=== PATIENT | male | born 1975 | race Caucasian/White ===

== ENCOUNTER 2017-08-25 20:05 | Observation (INO) | payer OTHER, SELFPAY ==
[2017-08-25 20:07] VITALS: BMI 42.3
--- NOTE | 2017-08-25 20:09 | XR_ITS ---
XR chest 2V HISTORY: ITS.REASON: CHEST PAIN ORDERING PHYSICIAN: Tyler Khoury MD PATIENT AGE: 42 years COMPARISON: None available FINDINGS: The cardiomediastinal silhouette and pulmonary vascularity are within normal limits. The lungs are clear without infiltrates, suspicious nodules, or pleural effusions. No acute bony abnormalities. IMPRESSION: Negative chest, no acute finding
[2017-08-25 20:11] VITALS: BP 153/100; PULSE 99; RESP 16; TEMP 36.6; O2SAT 99; BMI 42.3
[2017-08-25 20:30] LABS: Basophils # 0.1 K/mm3 (0-0.2); Basophils % 0.9 % (0.1-2.0); Eosinophils # 0.1 K/mm3 (0.0-0.4); Eosinophils % 1.3 % (0.1-12.0); Hematocrit 44.2 % (42.0-52.0); Hemoglobin 14.7 g/dL (14.1-18.0); Lymphocytes # 4.4 K/mm3 (0.7-4.5); Lymphocytes % 43.8 K/mm3 (10-50); Mean Corpuscular HGB Conc 33.3 g/dL (31.8-35.4); Mean Corpuscular Hemoglobin 28.3 pg (27.0-31.2); Mean Corpuscular Volume 84.9 fl (80-94); Mean Platelet Volume 8.4 fl (7.4-10.4); Monocytes # 0.6 K/mm3 (0.1-1.0); Monocytes % 5.8 % (1.7-9.3); Neutrophils # 4.8 K/mm3 (1.8-7.8); Neutrophils % 48.1 % (37.0-80.0); Platelet Count 247 K/mm3 (142-424); Red Blood Count 5.21 M/mm3 (4.60-6.20); Red Cell Distribution Width 12.5 % (11.5-17.5)
[2017-08-25 20:49] VITALS: BP 143/75; PULSE 85; RESP 19; O2SAT 97
[2017-08-25 20:57] LABS: Alanine Aminotransferase 47 U/L (12-78); Albumin Level 3.8 gm/dL (3.4-5.0); Alkaline Phosphatase 123 U/L (46-116); Anion Gap 8.6 mEq/L (5-15); Aspartate Amino Transferase 24 U/L (15-37); Bilirubin,Total 0.2 mg/dL (0.2-1.0); Blood Urea Nitrogen 14 mg/dL (7-18); CKMB Relative Index 0.6 U/L (0-4.0); Calcium 8.8 mg/dL (8.5-10.1); Carbon Dioxide 31 mmol/L (21.0-32.0); Chloride 103 mmol/L (98-107); Creatine Kinase 527 U/L (39-308); Creatine Kinase MB 2.9 mg/ml (0.0-3.6); Creatinine Clearance Estimated 98 mL/min (0-300); Creatinine,Serum 1.16 mg/dL (0.70-1.30); Estimated Glomerular Filt Rate 70 ml/min (>60); GFR (African American) 84 ML/MIN (>60); Globulin 3.8 gm/dl (1.3-3.2); Glucose 112 mg/dL (74-106); Potassium 3.6 mmoL/L (3.5-5.1); Sodium 139 mmol/L (136-145); Total Protein,Serum 7.6 gm/dL (6.4-8.2); Troponin I < 0.02 ng/ml (0.00-0.06)
--- NOTE | 2017-08-25 21:32 | PC.NURSE ---
DR PATEL COVERING FRO DR BRENNAN PAGEJonathan RE ADMISSION
--- NOTE | 2017-08-25 21:36 | PC.NURSE ---
CASE DISCUSSED WITH DR PATEL. TO BE ADMITTED TO ROOM 215 FOR CHEST PAIN.
[2017-08-25 21:51] VITALS: BP 131/95; PULSE 77; RESP 14; O2SAT 96
--- NOTE | 2017-08-25 22:09 | HMH.EDCP ---
ED Disposition Clinical Impression: Chest pain Qualifiers: Chest pain type: other chest pain Qualified Code(s): R07.89 - Other chest pain; R07.8 - Other chest pain Disposition: Admitted As Inpatient Condition on Discharge: Good Time of Disposition: 21:45 - Critical Care Critical Care Time: No Attestation: On 08/25/17, the high probability of a clinically significant, sudden or life threatening deterioration of the following system(s) required my full and direct attention, intervention and personal management. The time I documented below is in addition to time spent performing reported procedures but includes the following listed in this critical care notation. Medical Decision Making - Medical Records Medical records reviewed: Yes: I reviewed the patient's medical records. Vital Signs: 08/25/17 20:11 08/25/17 20:49 08/25/17 21:51 Temperature 98 F Temperature Source Oral Pulse Rate Pulse Rate [Right Brachial] 99 H 85 77 Respiratory Rate 16 19 14 Blood Pressure Blood Pressure [Right Arm] 153/100 143/75 131/95 Blood Pressure Mean [Right Arm] 117 97 107 Blood Pressure Source Blood Pressure Source [Right Arm] Automatic Cuff Automatic Cuff Automatic Cuff Blood Pressure Position Blood Pressure Position [Right Arm] Supine Sitting Sitting 02 Sat by Pulse Oximetry 99 97 96 Oxygen Delivery Method Room Air Room Air Room Air 08/25/17 22:45 08/25/17 22:46 Temperature 98.6 F Temperature Source Pulse Rate 77 Pulse Rate [Right Brachial] Respiratory Rate 10 L Blood Pressure 131/95 Blood Pressure [Right Arm] Blood Pressure Mean [Right Arm] Blood Pressure Source Automatic Cuff Blood Pressure Source [Right Arm] Blood Pressure Position Sitting Blood Pressure Position [Right Arm] 02 Sat by Pulse Oximetry Oxygen Delivery Method Room Air Room Air - Lab Data Lab results reviewed: Yes: I reviewed the patient's lab results. Lab Results 08/25/17 20:20: WBC 10.0, RBC 5.21, Hgb 14.7, Hct 44.2, MCV 84.9, MCH 28.3, MCHC 33.3, RDW 12.5, Plt Count 247, MPV 8.4, Neut % (Auto) 48.1, Lymph % (Auto) 43.8, [place] % (Auto) 5.8, Eos % (Auto) 1.3, Baso % (Auto) 0.9, Neut # (Auto) 4.8, Lymph # (Auto) 4.4, [place] # (Auto) 0.6, Eos # (Auto) 0.1, Baso # (Auto) 0.1 08/25/17 20:20: Sodium 139, Potassium 3.6, Chloride 103, Carbon Dioxide 31, Anion Gap 8.6, BUN 14, Creatinine 1.16, Estimated Creat Clear 98, Estimated GFR 70, Est GFR ( Amer) 84, Glucose 112 H, Calcium 8.8, Total Bilirubin 0.2, AST 24, ALT 47, Alkaline Phosphatase 123 H, Total Creatine Kinase 527 H*, CK-MB (CK-2) 2.9, CK-MB (CK-2) Rel Index 0.6, Troponin I < 0.02, Total Protein 7.6, Albumin 3.8, Globulin 3.8 H, Albumin/Globulin Ratio 1.0 L 08/25/17 20:30: PT 9.6, INR 0.89 L, APTT 25.5, D-Dimer < 100 08/25/17 22:45: Total Creatine Kinase 458 H, CK-MB (CK-2) 2.1 D, CK-MB (CK-2) Rel Index 0.5, Troponin I < 0.02 Result diagrams: 08/25/17 20:20 08/25/17 20:20 Orders (Tests/Meds): ED MEDICATIONS Generic Name Dose Route Start Last Admin Trade Name Freq PRN Reason Stop Dose Admin Aspirin 324 mg 08/25/17 23:22 08/26/17 01:18 Aspirin 81mg Chewable Tablet PO 08/25/17 23:23 Not Given ONCE ONE Aspirin 81 mg 08/26/17 09:00 Aspirin 81mg Chewable Tablet PO 09/25/17 08:59 DAILY [facility] Morphine Sulfate 4 mg 08/25/17 23:22 Morphine 4mg/Ml Syringe IV 08/25/17 23:23 ONCE ONE Nitroglycerin 0.4 mg 08/25/17 23:22 Nitrostat 0.4mg Sl Tablet SL 09/24/17 23:00 Q5MINP PRN Chest Pain Non-Formulary Medication 20 mg 08/26/17 09:00 Omeprazole Magnesium [Prilosec Otc 20mg Tab] PO 09/25/17 08:59 DAILY [facility] Ondansetron HCl 4 mg 08/25/17 23:22 Zofran 4mg/2ml Vial IV 08/25/17 23:23 ONCE ONE Discontinued Medications Generic Name Dose Route Start Last Admin Trade Name Freq PRN Reason Stop Dose Admin Aspirin 234 mg 08/25/17 20:09 08/25/17 20:20 Aspirin 81mg Chewable
[2017-08-25 22:46] VITALS: BP 131/95; PULSE 77; RESP 10; TEMP 37; O2SAT 96
[2017-08-25 23:09] VITALS: BMI 43.8
[2017-08-25 23:10] VITALS: BP 143/97; PULSE 82; RESP 18; TEMP 36.7; O2SAT 94
[2017-08-25 23:22] LABS: Activated Partial Thrombo Time 25.5 seconds (23.6-34.0); INR 0.89 (0.9-1.1); Prothrombin Time 9.6 seconds (9.4-11.8)
[2017-08-25 23:28] LABS: CKMB Relative Index 0.5 U/L (0-4.0); Creatine Kinase 458 U/L (39-308); Creatine Kinase MB 2.1 mg/ml (0.0-3.6); Troponin I < 0.02 ng/ml (0.00-0.06)
[2017-08-25 23:37] LABS: D-Dimer < 100 (0-400)
[2017-08-25 23:55] VITALS: O2SAT 94
[2017-08-26 00:05] VITALS: PULSE 70
[2017-08-26 04:00] VITALS: BP 128/80; PULSE 69; PULSE 80; RESP 20; TEMP 36.4; O2SAT 97
--- NOTE | 2017-08-26 05:46 | PC.NURSE ---
C/O CP ON L SIDE OF CHEST, RATING PAIN 2/10 ON 0-10 [employer], PT STATES IT WAS JUST HERE BUT NOW IT IS GONE DENIED NEED FOR PAIN MEDICATION. INSTRUCTED PT TO NOTIFY NURSING STAFF IF PAIN REOCCURS AND PAIN MEDICATION IS NEEDED. NSR NOTED PER ELECTRICAL PARTS RECONDITIONER. 02 SAT >90% PER CONTINUOUS PULSE OX MONITORING. VSS. WILL CONTINUE TO MONITOR.
--- NOTE | 2017-08-26 07:34 | P.CONPHA_ITS ---
[facility] VTE Monitoring - Patient Demographics Admission date: 08/25/17 Report Date: 08/26/17 Time: 07:34 Allergies/Adverse Reactions: Patient Allergies NO KNOWN ALLERGIES Allergy (Uncoded 07/09/17 14:31) Height: 1.88 m Weight: 154.902 kg Patient Problems: Current Active Problems Chest pain (Acute) - VTE Risk Labs: VTE Related Lab Results Hgb 14.7 g/dL (14.1-18.0) 08/25/17 20:20 Hct 44.2 % (42.0-52.0) 08/25/17 20:20 Plt Count 247 K/mm3 (142-424) 08/25/17 20:20 PT 9.6 seconds (9.4-11.8) 08/25/17 20:30 INR 0.89 (0.9-1.1) L 08/25/17 20:30 APTT 25.5 seconds (23.6-34.0) 08/25/17 20:30 BUN 14 mg/dL (7-18) 08/25/17 20:20 Creatinine 1.16 mg/dL (0.70-1.30) 08/25/17 20:20 Estimated Creat Clear 98 mL/min (0-300) 08/25/17 20:20 Was VTE Risk Assessment Performed: No VTE Score: 1 VTE Risk Level: Very Low Risk - Prophylaxis VTE Prophylaxis Ordered?: Yes Types of VTE Prophylaxis: TEDS Knee High Location of Applied Device: Bilateral Lower Extremeties - VTE Diagnosis Confirmed Treatment or plan recommended: Continue Current Treatment
--- NOTE | 2017-08-26 07:58 | CA_ITS ---
PROCEDURE: 2-D M-mode and color Doppler study INDICATIONS FOR THE TEST: Chest pain X COPD Heart Murmur Tobacco Smoking Palpitations Fatigue Syncope Edema Hypertension Diabetes Mellitus Rheumatic Fever SOBXDOE ObesityXHyperlipidemia Family History HD Additional History PATIENT INFORMATION HEIGHT: 74 WEIGHT:341 GENDER: Male B/P:131/95 2-D/M-MODE INTERPRETATION: 2-D MEASUREMENTS OBSERVED VALUES IN CMS Right Ventricular Dimension (RVDd) 1.8 Interventricular Septum (Thickness)(IVsd) 1.0 Left Ventricular Internal Dimensions(LVIDd) 5.7 Left Ventricular Posterior Wall (Thickness)(LVPWd) .8 Aortic Root 3.9 Aortic Cusp Separation 2.6 Left Atrial Dimensions (LAD) 3.6 2D 1. Technically difficult study because of the patient's factor and poor acoustic windows 2. Left atrium is mildly enlarged, left ventricle is normal size, visually estimated ejection fraction 50% with no obvious regional wall motion abnormality. 3. The aortic valve is minimally thickened and fibrosed. 4. The mitral and tricuspid valve are grossly normal. 5. The pulmonic valve is poorly visualized. 6. No significant pericardial effusion noted. 7. The right atrium and right ventricle are mildly enlarged with normal contractility. DOPPLER INTERROGATION: Doppler interrogation of the aortic, mitral and tricuspid valvular presence of mild mitral and tricuspid regurgitation, tricuspid and jet velocity is insufficient for calculation of the right ventricular systolic pressure, grade 1 diastolic dysfunction seen without tissue Doppler evidence of raised left atrial pressure. CONCLUSION: 1. Mildly left atrium, normal left ventricular size, visually estimated ejection fraction 50% with no obvious regional wall motion abnormality. Grade 1 diastolic dysfunction seen without tissue Doppler evidence of raised left atrial pressure. 2. Mildly enlarged right ventricle with normal contractility. 3. Mild mitral and tricuspid regurgitation 4. No significant pericardial effusion noted.
[2017-08-26 08:00] VITALS: PULSE 60
--- NOTE | 2017-08-26 08:15 | HMH.CARDCON2 ---
History of Present Illness Consult date: 08/26/17 Requesting physician: Alec Rascon Consult reason: chest pain Chief complaint: chest pain History of present illness: 42-year-old white male came to the emergency department last evening for 1 hour of left hand and arm tingling sensation with associated discomfort in the left side of the chest. Patient denies any palpitations, nausea, vomiting, diarrhea, fever or chills recently. He does relate an episode at [employer] yesterday morning that lasts about 2 minutes where he felt lightheaded without chest pain or palpitations. He has had some elevated blood pressure readings at home recently, but they have been normal at his primary care physician's office. He does not take any blood pressure medicine, cholesterol medication, diabetes medicine nor does he smoke or drink. His mother and father have no history of early heart disease. His EKG upon arrival to the emergency department showed sinus rhythm. His cardiac enzymes overnight have returned normal. Patient does take Protonix on a daily basis for reflux. He does take an aspirin daily. Cardiology consulted for evaluation and recommendations. Review of Systems - *Cardiovascular Reports chest pain - *Respiratory Denies shortness of breath, Denies shortness of breath with activity - *Gastrointestinal Denies abdominal pain, Denies black, tarry stools - *Genitourinary Denies blood in urine - *Musculoskeletal Denies back pain - *Neurologic Reports dizziness, Denies loss of vision [facility] History Medical History: Denies:: Cancer, Diabetes Mellitus Type 1, Diabetes Mellitus Type 2, Internal Pacemaker, MRSA Other Surgeries: No: Pacemaker Amputation: No Fractures: No - *Social History Educational Level: Completed High School Tobacco Type: smokeless tobacco Alcohol Intake: never Occupational Status: employed Housing: house Household Members: spouse - Psychiatric History Expresses thoughts of harming self/others: None Suicide Plan Description: No Plan *Family Hx:: Cancer, Coronary Artery Disease, Heart Attack, Hyperlipidemia, Hypertension, Stroke Meds Home Medications Medication Instructions Recorded Confirmed Type Aspirin [Aspirin 81mg chewable 81 mg PO DAILY 08/25/17 08/26/17 History tab] Omeprazole Magnesium [Prilosec Otc 20 mg PO DAILY 08/25/17 08/26/17 History 20mg Tab] Ergocalciferol (Vitamin D2) 2,000 unit PO DAILY 08/26/17 08/26/17 History [Vitamin D] Allergies Allergy/AdvReac Type Severity Reaction Status Date / Time NO KNOWN ALLERGIES Allergy Uncoded 07/09/17 14:31 Exam Vital signs and Labs for Last 24 Hours: Temp Pulse Resp BP Pulse Ox 97.6 F 69 20 128/80 97 08/26/17 04:00 08/26/17 04:00 08/26/17 04:00 08/26/17 04:00 08/26/17 04:00 I & O for Last 24 hours: Intake & Output 08/23/17 08/24/17 08/25/17 08/26/17 11:59 11:59 11:59 11:59 Intake Total Balance Weight 341 lb 8 oz - *Routine Neck Exam Absent: JVD, carotid bruit - *Routine Respiratory Exam Present: CTA bilaterally - *Routine Cardiovascular Exam Present: RRR. Absent: murmur, gallop, rubs - *Routine Extremities Exam Absent: edema - *Routine Neurological Exam Present: alert, oriented X3, moving all extremities Results 08/25/17 20:20 08/25/17 20:20 Intake and Output 08/25/17 08/26/17 08/26/17 19:59 03:59 11:59 Intake Total Balance Intake: Intake, Other Amount Other: Number of Bowel Movements 0 Weight 341 lb 8 oz 341 lb 8 oz Patient Weight 08/26/17 11:59 Weight 341 lb 8 oz EKG interpretations - EKG EKG results cardiology: sinus rhythm Assessment and Plan (1) Elevated blood pressure reading Current visit: Yes Status: Acute Category: Medical Code(s): R03.0 - Elevated blood-pressure reading, without diagnosis of hypertension (2) Acid reflux Current v
--- NOTE | 2017-08-26 08:19 | P.CONS_ITS ---
History of Present Illness Consult date: 08/26/17 Requesting physician: Alec Rascon Consult reason: chest pain Chief complaint: chest pain History of present illness: 42-year-old white male came to the emergency department last evening for 1 hour of left hand and arm tingling sensation with associated discomfort in the left side of the chest. Patient denies any palpitations, nausea, vomiting, diarrhea , fever or chills recently. He does relate an episode at [employer] yesterday morning that lasts about 2 minutes where he felt lightheaded without chest pain or palpitations. He has had some elevated blood pressure readings at home recently, but they have been normal at his primary care physician's office. He does not take any blood pressure medicine, cholesterol medication, diabetes medicine nor does he smoke or drink. His mother and father have no history of early heart disease. His EKG upon arrival to the emergency department showed sinus rhythm. His cardiac enzymes overnight have returned normal. Patient does take Protonix on a daily basis for reflux. He does take an aspirin daily. Cardiology consulted for evaluation and recommendations. Review of Systems - *Cardiovascular Reports chest pain - *Respiratory Denies shortness of breath, Denies shortness of breath with activity - *Gastrointestinal Denies abdominal pain, Denies black, tarry stools - *Genitourinary Denies blood in urine - *Musculoskeletal Denies back pain - *Neurologic Reports dizziness, Denies loss of vision [facility] History Medical History: Denies:: Cancer, Diabetes Mellitus Type 1, Diabetes Mellitus Type 2, Internal Pacemaker, MRSA Other Surgeries: No: Pacemaker Amputation: No Fractures: No - *Social History Educational Level: Completed High School Tobacco Type: smokeless tobacco Alcohol Intake: never Occupational Status: employed Housing: house Household Members: spouse - Psychiatric History Expresses thoughts of harming self/others: None Suicide Plan Description: No Plan *Family Hx:: Cancer, Coronary Artery Disease, Heart Attack, Hyperlipidemia, Hypertension, Stroke Meds Home Medications Medication Instructions Recorded Confirmed Type Aspirin [Aspirin 81mg chewable 81 mg PO DAILY 08/25/17 08/26/17 History tab] Omeprazole Magnesium [Prilosec Otc 20 mg PO DAILY 08/25/17 08/26/17 History 20mg Tab] Ergocalciferol (Vitamin D2) 2,000 unit PO DAILY 08/26/17 08/26/17 History [Vitamin D] Allergies Allergy/AdvReac Type Severity Reaction Status Date / Time NO KNOWN ALLERGIES Allergy Uncoded 07/09/17 14:31 Exam Vital signs and Labs for Last 24 Hours: Temp Pulse Resp BP Pulse Ox 97.6 F 69 20 128/80 97 08/26/17 04:00 08/26/17 04:00 08/26/17 04:00 08/26/17 04:00 08/26/17 04:00 I & O for Last 24 hours: Intake & Output 08/23/17 08/24/17 08/25/17 08/26/17 11:59 11:59 11:59 11:59 Intake Total Balance Weight 341 lb 8 oz - *Routine Neck Exam Absent: JVD, carotid bruit - *Routine Respiratory Exam Present: CTA bilaterally - *Routine Cardiovascular Exam Present: RRR. Absent: murmur, gallop, rubs - *Routine Extremities Exam Absent: edema - *Routine Neurological Exam Present: alert, oriented X3, moving all extremities Results
--- NOTE | 2017-08-26 09:07 | HMH.HP ---
*Admission Date: 08/25/17 <CortezCeleste 08/26/17 09:24> *Chief complaint: chest pain <CortezCeleste 08/26/17 09:24> *History of present illness: Mr. Jimenez is a 42-year-old white male came to the emergency department last evening for 1 hour of left hand and arm tingling sensation with associated discomfort in the left side of the chest. Patient denies having any palpitations, nausea, vomiting, diarrhea, fever or chills recently. He does relate an episode at [employer] yesterday morning that lasts about 2 minutes where he felt lightheaded without chest pain or palpitations. He states that he has had a lazy weekend. He has had some elevated blood pressure readings at home recently, but they have been normal at his primary care physician's office. He does not take any blood pressure medicine, cholesterol medication, diabetes medicine nor does he smoke or drink. His mother and father have no history of early heart disease. His EKG upon arrival to the emergency department showed sinus rhythm. His cardiac enzymes overnight have returned normal. Patient does take Omeprasol on a daily basis for reflux. He does take an aspirin daily. Cardiology was consulted for evaluation and recommendations. <DanaCeleste 08/26/17 09:24> [facility] History Medical History: Reports:: Gastroesophageal Reflux Disease(GERD) Denies:: Atherosclerotic Heart Disease, Atrial Fibrillation, BPH, Cancer, Chronic Obstructive Pulmonary Disease (COPD), Coronary Artery Disease, Cerebrovascular Accident, Depression, Diabetes Mellitus Type 1, Diabetes Mellitus Type 2, Hiatal Hernia, Hyperlipidemia, Hypertension, Internal Pacemaker, Lung Disease, MRSA, Palpitations <Celeste Cortez 08/26/17 09:24> Other Medical History: Reports: Arthritis. Denies: Anemia <Celeste Cortez 08/26/17 09:24> Other Surgeries: No: Pacemaker <Celeste Cortez 08/26/17 09:24> Amputation: No <Celeste Cortez 08/26/17 09:24> Fractures: No <Celeste Cortez 08/26/17 09:24> - *Social History Educational Level: Completed High School <Celeste Cortez 08/26/17 09:24> Tobacco Type: smokeless tobacco <Celeste Cortez 08/26/17 09:24> Alcohol Intake: never <Celeste Cortez 08/26/17 09:24> Occupational Status: employed <Celeste Cortez 08/26/17 09:24> Housing: house <Celeste Cortez 08/26/17 09:24> Household Members: spouse <Celeste Cortez 08/26/17 09:24> - Psychiatric History Expresses thoughts of harming self/others: None <Celeste Cortez 08/26/17 09:24> Suicide Plan Description: No Plan <Celeste Cortez 08/26/17 09:24> *Family Hx:: Cancer, Coronary Artery Disease, Heart Attack, Hyperlipidemia, Hypertension, Stroke <Celeste Cortez 08/26/17 09:24> Review of Systems - Constitutional Denies body ache(s), Denies chills, Denies fever(s), Denies headache(s) <Celeste Cortez 08/26/17 09:24> - Eyes Denies blurry vision, Denies change in vision <Celeste Cortez 08/26/17 09:24> - ENT Denies dizziness, Denies ear pain, Denies headache(s), Denies sore throat <Celeste Cortez 08/26/17 09:24> - *Cardiovascular Reports chest pain, Reports chest pain at rest, Reports lightheadedness, Denies excessive sweating, Denies shortness of breath, Denies generalized swelling, Denies irregular heart rhythm, Denies leg swelling, Denies rapid, pounding, or irregular heartbeat <Celeste Cortez 08/26/17 09:24> - *Respiratory Denies chest congestion, Denies cough, Denies shortness of breath, Denies coughing up blood <Celeste Cortez 08/26/17 09:24> - *Gastrointestinal Reports heartburn, Reports heartburn, Denies change in bowel habits, Denies change in stools, Denies constipation, Denies loose stools, Denies loose stools, Denies nausea <DanaCeleste 08/26/17 09:24> - *Genitourinary Denies difficulty urinating <CortzeCeleste 08/26/17 09:24> - *Musculoskeletal Reports joint pain, Reports back pain, Denies abnormal walking, Denies muscle weakness, Denies body aches, Denies neck pain <
--- NOTE | 2017-08-26 09:11 | P.HP_ITS ---
*Admission Date: 08/25/17 <CortezCeleste 08/26/17 09:24> *Chief complaint: chest pain <CortezCeleste 08/26/17 09:24> *History of present illness: Mr. Jimenez is a 42-year-old white male came to the emergency department last evening for 1 hour of left hand and arm tingling sensation with associated discomfort in the left side of the chest. Patient denies having any palpitations, nausea, vomiting, diarrhea, fever or chills recently. He does relate an episode at [employer] yesterday morning that lasts about 2 minutes where he felt lightheaded without chest pain or palpitations. He states that he has had a lazy weekend. He has had some elevated blood pressure readings at home recently, but they have been normal at his primary care physician's office. He does not take any blood pressure medicine, cholesterol medication, diabetes medicine nor does he smoke or drink. His mother and father have no history of early heart disease. His EKG upon arrival to the emergency department showed sinus rhythm. His cardiac enzymes overnight have returned normal. Patient does take Omeprasol on a daily basis for reflux. He does take an aspirin daily. Cardiology was consulted for evaluation and recommendations. <DanaCeleste 08/26/17 09:24> [facility] History Medical History: Reports:: Gastroesophageal Reflux Disease(GERD) Denies:: Atherosclerotic Heart Disease, Atrial Fibrillation, BPH, Cancer, Chronic Obstructive Pulmonary Disease (COPD), Coronary Artery Disease, Cerebrovascular Accident, Depression, Diabetes Mellitus Type 1, Diabetes Mellitus Type 2, Hiatal Hernia, Hyperlipidemia, Hypertension, Internal Pacemaker , Lung Disease, MRSA, Palpitations <Celeste Cortez 08/26/17 09:24> Other Medical History: Reports: Arthritis. Denies: Anemia <Celeste Cortez 09:24> Other Surgeries: No: Pacemaker <Celeste Cortez 08/26/17 09:24> Amputation: No <Celeste Cortez 08/26/17 09:24> Fractures: No <Celeste Cortez 08/26/17 09:24> - *Social History Educational Level: Completed High School <Celeste Cortez 08/26/17 09:24> Tobacco Type: smokeless tobacco <Celeste Cortez 08/26/17 09:24> Alcohol Intake: never <Celeste Cortez 08/26/17 09:24> Occupational Status: employed <Celeste Cortez 08/26/17 09:24> Housing: house <Celeste Cortez 08/26/17 09:24> Household Members: spouse <Celeste Cortez 08/26/17 09:24> - Psychiatric History Expresses thoughts of harming self/others: None <Celeste Cortez 08/26/17 09: 24> Suicide Plan Description: No Plan <Celeste Cortez 08/26/17:24> *Family Hx:: Cancer, Coronary Artery Disease, Heart Attack, Hyperlipidemia, Hypertension, Stroke <Celeste Cortez 08/26/17 09:24> Review of Systems - Constitutional Denies body ache(s), Denies chills, Denies fever(s), Denies headache(s) < Celeste Cortez 08/26/17 09:24> - Eyes Denies blurry vision, Denies change in vision <Celeste Cortez 08/26/17 09:24> - ENT Denies dizziness, Denies ear pain, Denies headache(s), Denies sore throat < Celeste Cortez 08/26/17 09:24> - *Cardiovascular Reports chest pain, Reports chest pain at rest, Reports lightheadedness, Denies excessive sweating, Denies shortness of breath, Denies generalized swelling, Denies irregular heart rhythm, Denies leg swelling, Denies rapid, pounding, or irregular heartbeat <Celeste Cortez 08/26/17 09:24> - *Respiratory Denies chest congestion, Denies cough, Denies shortness of breath, Denies coughing up blood <Celeste Cortez 08/26/17 09:24> - *Gastrointestinal Reports heartburn, Reports heartburn, Denies change in bowel habits, Denies change in stools, Denies constipation, Denies loose stoo
[2017-08-26 12:00] VITALS: BP 114/77; PULSE 71; PULSE 76; RESP 18; TEMP 36.8; O2SAT 98
--- NOTE | 2017-08-26 15:11 | PC.NURSE ---
Pt resting in chair with no new complaints at this time. denies chest pain at this time. echo and stress test completed this shift. up to in room with no issues noted. call light in reach will continue to monitor
[2017-08-26 16:00] VITALS: BP 124/65; PULSE 72; PULSE 73; RESP 16; TEMP 36.8; O2SAT 96
--- NOTE | 2017-08-26 21:35 | HMH.DCSUM ---
General - General Admission date: 08/25/17 Discharge date: 08/26/17 HPI HPI: Mr. Jimenez is a 42-year-old white male who came to the emergency department last evening for 1 hour of left hand and arm tingling sensation with associated discomfort in the left side of the chest. Patient denies having any palpitations, nausea, vomiting, diarrhea, fever or chills recently. He does relate an episode at [employer] yesterday morning that lasts about 2 minutes where he felt lightheaded without chest pain or palpitations. He states that he has had a lazy weekend. He has had some elevated blood pressure readings at home recently, but they have been normal at his primary care physician's office. He does not take any blood pressure medicine, cholesterol medication, diabetes medicine nor does he smoke or drink. His mother and father have no history of early heart disease. His EKG upon arrival to the emergency department showed sinus rhythm. His cardiac enzymes overnight have returned normal. Patient does take Omeprazole on a daily basis for reflux. He does take an aspirin daily. Cardiology was consulted for evaluation and recommendations. Objective Vital signs: Temp Pulse Resp BP Pulse Ox 98.2 F 72 16 124/65 96 08/26/17 16:00 08/26/17 16:00 08/26/17 16:00 08/26/17 16:00 08/26/17 16:00 Narrative: - Constitutional no acute distress, cooperative - *Routine HEENT Exam Head: Present: normocephalic, atraumatic Eye: Present: PERRL. Absent: scleral injection ENT: Present: mucous membranes moist, oropharynx clear, dentition normal - *Routine Neck Exam Present: supple, full ROM. Absent: carotid bruit, lymphadenopathy, thyromegaly - *Routine Respiratory Exam Present: accessory muscle use (A&P) - *Routine Cardiovascular Exam Present: RRR Comments: monitor showing NSR - *Routine Abdominal Exam Present: soft, normoactive bowel sounds. Absent: tenderness, distended - *Routine Neurological Exam Present: alert, oriented X3, moving all extremities. Absent: sensory deficit, motor deficit - Routine Psychiatric Exam Present: normal affect Hospital Course Hospital Course: Pt was seen by cardiology and they performed a stress test. He had a hypertensive response to exercise on the cardiac stress test. His ECHO was normal. He was stable to be discharged home with Lisinopril for his elevated blood pressure. Will f/u in office in 2 weeks and arrange a sleep study. DS: Diagnosis - Discharge Diagnosis (1) Acid reflux Status: Acute (2) Chest pain Status: Acute (3) Elevated blood pressure reading Status: Acute (4) History of snoring Status: Acute (5) Obesity Status: Acute Meds Home Medications Medication Instructions Recorded Confirmed Type Aspirin [Aspirin 81mg chewable 81 mg PO DAILY 08/25/17 08/26/17 History tab] Omeprazole Magnesium [Prilosec Otc 20 mg PO DAILY 08/25/17 08/26/17 History 20mg Tab] Ergocalciferol (Vitamin D2) 2,000 unit PO DAILY 08/26/17 08/26/17 History [Vitamin D] Allergies Allergy/AdvReac Type Severity Reaction Status Date / Time NO KNOWN ALLERGIES Allergy Uncoded 07/09/17 14:31 Discharge Plan - Patient Discharge Instructions ACTIVITY: Continue current activity DIET: low fat, low cholesterol, low salt diet Patient Instructions: High Blood Pressure - Follow up Plan Follow up with: Alec Rascon MD [Primary Care Provider] - 2 weeks Disposition: Home, Self-Retirement Medications: Home Medications Medication Instructions Recorded Confirmed Type Aspirin [Aspirin 81mg chewable 81 mg PO DAILY 08/25/17 08/26/17 History tab] Omeprazole Magnesium [Prilosec Otc 20 mg PO DAILY 08/25/17 08/26/17 History 20mg Tab] Ergocalciferol (Vitamin D2) 2,000 unit PO DAILY 08/26/17 08/26/17 History [Vitamin D] Prescriptions/Medication Reconciliation: Justino Farah
--- NOTE | 2017-08-26 21:38 | P.DS_ITS ---
General - General Admission date: 08/25/17 Discharge date: 08/26/17 HPI HPI: Mr. Jimenez is a 42-year-old white male who came to the emergency department last evening for 1 hour of left hand and arm tingling sensation with associated discomfort in the left side of the chest. Patient denies having any palpitations, nausea, vomiting, diarrhea, fever or chills recently. He does relate an episode at [employer] yesterday morning that lasts about 2 minutes where he felt lightheaded without chest pain or palpitations. He states that he has had a lazy weekend. He has had some elevated blood pressure readings at home recently, but they have been normal at his primary care physician's office. He does not take any blood pressure medicine, cholesterol medication, diabetes medicine nor does he smoke or drink. His mother and father have no history of early heart disease. His EKG upon arrival to the emergency department showed sinus rhythm. His cardiac enzymes overnight have returned normal. Patient does take Omeprazole on a daily basis for reflux. He does take an aspirin daily. Cardiology was consulted for evaluation and recommendations. Objective Vital signs: Temp Pulse Resp BP Pulse Ox 98.2 F 72 16 124/65 96 08/26/17 16:00 08/26/17 16:00 08/26/17 16:00 08/26/17 16:00 08/26/17 16:00 Narrative: - Constitutional no acute distress, cooperative - *Routine HEENT Exam Head: Present: normocephalic, atraumatic Eye: Present: PERRL. Absent: scleral injection ENT: Present: mucous membranes moist, oropharynx clear, dentition normal - *Routine Neck Exam Present: supple, full ROM. Absent: carotid bruit, lymphadenopathy, thyromegaly - *Routine Respiratory Exam Present: accessory muscle use (A&P) - *Routine Cardiovascular Exam Present: RRR Comments: monitor showing NSR - *Routine Abdominal Exam Present: soft, normoactive bowel sounds. Absent: tenderness, distended - *Routine Neurological Exam Present: alert, oriented X3, moving all extremities. Absent: sensory deficit, motor deficit - Routine Psychiatric Exam Present: normal affect Hospital Course Hospital Course: Pt was seen by cardiology and they performed a stress test. He had a hypertensive response to exercise on the cardiac stress test. His ECHO was normal. He was stable to be discharged home with Lisinopril for his elevated blood pressure. Will f/u in office in 2 weeks and arrange a sleep study. DS: Diagnosis - Discharge Diagnosis (1) Acid reflux Status: Acute (2) Chest pain Status: Acute (3) Elevated blood pressure reading Status: Acute (4) History of snoring Status: Acute (5) Obesity Status: Acute Meds Home Medications Medication Instructions Recorded Confirmed Type Aspirin [Aspirin 81mg chewable 81 mg PO DAILY 08/25/17 08/26/17 History tab] Omeprazole Magnesium [Prilosec Otc 20 mg PO DAILY 08/25/17 08/26/17 History 20mg Tab] Ergocalciferol (Vitamin D2) 2,000 unit PO DAILY 08/26/17 08/26/17 History [Vitamin D] Allergies Allergy/AdvReac Type Severity Reaction Status Date / Time NO KNOWN ALLERGIES Allergy Uncoded 07/09/17 14:31 Discharge Plan - Patient Discharge Instructions ACTIVITY: Continue current activity DIET: low fat, low cholesterol, low salt d
== END 2017-08-26 17:55 | disposition home or self-care (01) ==
LOC: ER 20:53 → 2ND 22:10
PROVIDERS: Admitting Provider Family Medicine; Emergency Provider Emergency Medicine; PCP Family Medicine; Visit Provider Family Medicine
DX: R07.2 Precordial pain (principal); E66.9 Obesity, unspecified; F17.200 Nicotine dependence, unspecified, uncomplicated; K21.9 Gastro-esophageal reflux disease without esophagitis; R06.83 Snoring; Z82.49 Family history of ischemic heart disease and other diseases of the circulatory system; Z80.9 Family history of malignant neoplasm, unspecified; Z83.49 Family history of other endocrine, nutritional and metabolic diseases; Z82.3 Family history of stroke; Z79.82 Long term (current) use of aspirin; Z79.899 Other long term (current) drug therapy; R03.0 Elevated blood-pressure reading, without diagnosis of hypertension; Z68.41 Body mass index [BMI] 40.0-44.9, adult
CPT/HCPCS: 36415; 71046; 80053; 82550; 82553; 84484; 85025; 85378; 85610; 85730; 93005; 93017; 93041; 93306; 99283; G0378

== ENCOUNTER → 2017-09-20 18:58 | Outpatient (CLI) | payer OTHER, SELFPAY | PROVIDERS: PCP Family Medicine; Visit Provider Family Medicine | DX: R06.83 Snoring (principal); E66.9 Obesity, unspecified; I10 Essential (primary) hypertension | CPT/HCPCS: G0399 ==

== ENCOUNTER → 2019-04-18 09:37 | Outpatient (CLI) | payer OTHER, SELFPAY ==
--- NOTE | 2019-04-18 09:46 | XR_ITS ---
PROCEDURE: XR KNEE RT 3V CLINICAL INDICATION: RIGHT KNEE PAIN Right knee pain COMPARISON: No exams were available for comparison FINDINGS: No fracture or dislocation. No lytic or blastic change. There is normal mineralization. The joint spaces are well-preserved. No significant degenerative/arthritic changes. No erosive changes evident. Other findings:None. IMPRESSION: No acute findings. Dictated by: Gildardo Duarte MD 04/18/2019 10:07 Electronically signed by Gildardo Duarte MD in [place] 04/18/2019 10:07
== END ==
PROVIDERS: PCP Family Medicine; Visit Provider Family Medicine
DX: M25.561 Pain in right knee (principal)
CPT/HCPCS: 73562

== ENCOUNTER 2020-08-25 09:29 | Emergency (ER) | payer BC, SELFPAY ==
[2020-08-25 09:45] VITALS: BP 146/99; PULSE 74; RESP 14; TEMP 36.2; O2SAT 96; BMI 44.9
--- NOTE | 2020-08-25 10:07 | HMH.EDUTC ---
[facility] [place] Clinical Impression: Viral syndrome, Exposure to COVID-19 virus Disposition: Home, Self-Care Condition on Discharge: Good Instructions: DI for Viral Syndrome, Preventing the Spread of Coronavirus Discharge Instructions Additional Instructions: Drink plenty of fluids. Take tylenol for pain or fever. Return if you begin to have difficulty breathing. Follow up with your regular doctor. GO TO THE ER FOR ANY WORSENING SYMPTOMS Prescriptions: Benzonatate [Tessalon Perle 100mg Cap] 100 mg PO TIDP PRN #30 cap PRN Reason: Cough Transmission Status: Received by [id number] Referrals: Alec Rascon MD [Primary Care Provider] - Time of Disposition: :19 Medical Decision Making - Medical Records Medical records reviewed: No: I reviewed the patient's medical records. - George Inquiry Pt receiving controlled substance: No Vital Signs: 08/25/20 09:45 08/25/20 10:23 Temperature 97.2 F L 97.2 F L Temperature Source Oral Pulse Rate 74 Pulse Rate [Right Brachial] 74 Respiratory Rate 14 14 Blood Pressure 146/99 H Blood Pressure [Right Arm] 146/99 H Blood Pressure Mean [Right Arm] 114 Blood Pressure Source [Right Arm] Automatic Cuff Blood Pressure Position [Right Arm] Sitting 02 Sat by Pulse Oximetry 96 Oxygen Delivery Method Room Air [facility] [place] HPI - General Stated complaint: loss of taste and smell Time Seen by Provider: 08/25/20 10:09 Mode of Arrival: Ambulatory Source of Information: Patient Limitations: No Limitations Description of Symptoms (Recalled from Triage Doc. by RN): PATEINT C/O NO TASTE/SMELL, COUGH, CONGESTION SINCE SATURDAY. REQUESTING COVID TEST HEENT Symptoms (Recalled from RN notes): No Resp Symptoms (Recalled from RN notes): No Skin Symptoms (Recalled from RN notes): No MS Symptoms (Recalled from RN notes): No Functional Status (Recalled from RN notes): WNL - History of Present Illness Provider Complaint: He states that around 4 days ago he began feeling bad. He was having a cough and sore throat also. He states that other than the cough lingering he is feeling some better. Now his is having the same symptoms. - Related Data Home Medications Medication Instructions Recorded Confirmed Aspirin [Aspirin 81mg chewable 81 mg PO DAILY 08/25/17 05/17/19 tab] Omeprazole Magnesium [Prilosec Otc 20 mg PO DAILY 08/25/17 05/17/19 20mg Tab] Ergocalciferol (Vitamin D2) 2,000 unit PO DAILY 08/26/17 05/17/19 [Vitamin D] lisinopriL [Lisinopril 10mg Tab] 10 mg PO DAILY 05/17/19 05/17/19 Previous Rx's Medication Instructions Recorded methylPREDNISolone [Medrol] 4 mg PO DIRECTED 6 Days #21 05/17/19 tab.ds.pk Benzonatate [Tessalon Perle 100mg 100 mg PO TIDP PRN #30 cap 08/25/20 Cap] Allergies Allergy/AdvReac Type Severity Reaction Status Date / Time No Known Allergies Allergy Verified 08/25/20 10:07 - Worker's Comp Is this a Worker's Comp case?: No [facility] History - Hepatitis A Screen Drug use history?: No High risk sexual behaviors?: No History of sexually transmitted infection?: No Currently employed?: No Childcare worker?: No Do you have indoor plumbing?: Yes Do you have electricity?: Yes Attestation statement:: This patient has been screened for Hepatitis A risk factors. I have reviewed the patient's past medical history: Yes Medical History: Reports:: Gastroesophageal Reflux Disease(GERD) Denies:: Atherosclerotic Heart Disease, Atrial Fibrillation, BPH, Cancer, Chronic Obstructive Pulmonary Disease (COPD), Coronary Artery Disease, Cerebrovascular Accident, Depression, Diabetes Mellitus Type 1, Diabetes Mellitus Type 2, Hiatal Hernia, Hyperlipidemia, Hypertension, Internal Pacemaker, Lung Disease, MRSA, Palpitations Other Medical History: Reports: Arthritis. Denies: Anemia Other Surgeries: No: Pacemaker Amputation: No Fractures: No - Social History Smoking Status: Never smoker Tobacco Type: smoke
[2020-08-25 10:23] VITALS: BP 146/99; PULSE 74; RESP 14; TEMP 36.2; O2SAT 96
--- NOTE | 2020-08-25 13:22 | PC.NURSE ---
PATIENT NOTIFIED OF POSITIVE COVID RESULTS
== END 2020-08-25 10:25 | disposition home or self-care (01) ==
PROVIDERS: Emergency Provider Nurse Practitioner Family; PCP Family Medicine
DX: U07.1 COVID-19 (principal); B34.9 Viral infection, unspecified; K21.9 Gastro-esophageal reflux disease without esophagitis
CPT/HCPCS: 99202; G0463; U0003

== ENCOUNTER → 2022-04-18 21:00 | Outpatient (CLI) | payer OTHER, SELFPAY | PROVIDERS: PCP Internal Medicine Adolescent Medicine; Visit Provider Internal Medicine Adolescent Medicine | DX: G47.33 Obstructive sleep apnea (adult) (pediatric) (principal); I10 Essential (primary) hypertension; R53.83 Other fatigue | CPT/HCPCS: 95806 ==

== ENCOUNTER 2025-04-19 13:36 | Outpatient (CLI) | payer OTHER, SELFPAY ==
--- NOTE | 2025-04-19 13:37 | XR_ITS ---
FINAL REPORT CLINICAL HISTORY: Right knee pain. knee instability. COMPARISON: None FINDINGS: RIGHT KNEE Three views demonstrate no acute fracture or dislocation. The joint spaces appear normal. No acute soft tissue abnormality is seen. IMPRESSION: No acute bony abnormality. Reviewed, Interpreted and Dictated by Dimitri Almonte MD Transcribed by Erlinda Diaz Authenticated and [facility]
--- OUTSIDE RECORDS SUMMARY | 2025-04-19 13:39 | XMS_ITS | Clinical Summary ---
Author Organization Healthcare Address [address] [id number] Care Team Providers Care Reliner Name Role Phone Maximino Mendez Primary Care Provider [phone] Family History Medical History Relation Name Comments Conversions - Other Father Patient' s father is Hypertension Father Hypertension Mother Stroke Mother Cardiac disorder Other 1 Hypertension Other 2 Other cancer Other 3 Relation Name Status Comments Father Mother Other 1 Other 2 Other 3 Social History Tobacco Use Types Packs/Day Years Used Date Smoking Tobacco: Never Alcohol Use Standard Drinks/Week Comments No 0 (1 standard drink = 0.6 oz pur e alcohol) Sex and Gender Information Value Date Recorded Sex Assigned at Not on file Legal Sex Male 6:45 PM EDT Gender Identity Not on file Sexual Orientation Not on file Last Filed Vital Signs Vital Sign Reading Time Taken Comments Blood Pressure 151/85 05/20/2019 2:33 PM EDT Pulse 86 05/20/2019 2:33 PM EDT Temperature - - Respiratory Rate - - Oxygen Saturation - - Inhaled Oxygen Concentration - - Weight 154 kg (339 lb 15.9 oz) 05/20/2019 2:33 P M EDT Height 188 cm (6' 2 ) 05/20/2019 2:33 PM EDT Body Mass Index 43.65 05/20/2019 2:33 PM EDT Plan of Treatment Not on file Care Teams Reliner Relationship Specialty Start Date End Date Maximino Mendez [address] [place] [address] PCP - General 12/02/20
== END 2025-04-19 23:59 | disposition home or self-care (01) ==
LOC: RAD 13:37
PROVIDERS: PCP Nurse Practitioner; Visit Provider Physician Assistant
DX: M25.561 Pain in right knee (principal)
CPT/HCPCS: 73562

== ENCOUNTER 2025-05-05 09:26 | Outpatient (CLI) | payer OTHER, SELFPAY ==
--- OUTSIDE RECORDS SUMMARY | 2025-05-05 09:39 | XMS_ITS | Clinical Summary ---
Author Organization Healthcare Address [address] [place] [address] Care Team Providers Care Arboriculture Instructor Name Role Phone Maximino Mendez Primary Care Provider [phone] Family History Medical History Relation Name Comments [...] of Treatment Not on file Care Teams Arboriculture Instructor Relationship Specialty Start Date End Date Maximino Mendez [address] [place] [address] PCP - General 12/02/20
--- NOTE | 2025-05-05 09:45 | MR_ITS ---
FINAL REPORT TECHNIQUE: Multiplanar and multisequence imaging the right knee was obtained without contrast. CLINICAL HISTORY: right knee pain. KNEE INSTABILITY. FINDINGS: Bones: There is no acute fracture or marrow edema. The joint space is preserved. There is subchondral T2 abnormality at the patellar apex. There is mild chondromalacia of the patella at the medial patellar facet. No full-thickness cartilage defect is seen. Menisci: No meniscal tear is present. Ligaments: No cruciate or collateral ligament tear is present. Tendons/Muscles: The quadriceps and patellar tendons are intact. The biceps femoris tendon and iliotibial tract are intact. The popliteus tendon is unremarkable. Other: There is a small joint effusion. Remaining soft tissues are normal. 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 Otherwise, unremarkable exam. Reviewed, Interpreted and Dictated by Rupali Hay MD Transcribed by Isamar Doe Authenticated and [facility]
== END 2025-05-05 23:59 | disposition home or self-care (01) ==
LOC: RAD 09:27
PROVIDERS: PCP Nurse Practitioner; Visit Provider Physician Assistant
DX: M94.261 Chondromalacia, right knee (principal)
CPT/HCPCS: 73721